=== PATIENT | female | born 1980 | race Caucasian/White ===

== ENCOUNTER → 2016-11-02 17:03 | Outpatient (CLI) | payer BC | END | disposition home or self-care (01) | LOC: D.MAMMO 11:30 | DX: Z12.31 Encounter for screening mammogram for malignant neoplasm of breast (principal) ==

== ENCOUNTER 2019-01-02 08:45 | Day surgery (SDC) | payer MEDICARE ==
[2019-01-01 13:47] LABS: HEMATOCRIT 42.6 % (36.0-48.0); HEMOGLOBIN 14.8 g/dL (12-16); MCH 32.7 pg (26.0-34.0); MCHC 34.7 g/dL (31.0-37.0); MCV 94.2 fL (80.0-100.0); MEAN PLATELET VOLUME 9.3 fL (7.4-10.4); RBC 4.52 10x6/uL (4.00-5.40); WBC 15.7 10x3/uL (4.8-10.8)
[~2019-01-02] VITALS: Ht 154.9 cm; Wt 83.5 kg
[~2019-01-02 08:45] MED LIST: ACETAMINOPHEN500 M1 PO; ALDACTONE25 MG PO; BUSPAR 15 MG TA15 MG PO; CELEXA40 MG PO; KRILL OIL 1,001 EAC1 PO; LEVOTHYROXINE75 MCG PO; LITHIUM CARB CAP 300 PO; MELATONIN5 MG PO; MULTI-DAY VITAM1 TAB PO; PRAVACHOL80 MG PO; PROPRANOLOL HCL20 MG PO; TOPAMAX100 MG PO; VITAMIN D250000 UNIT PO; ZYRTEC10 MG PO
--- NOTE | 2019-01-02 08:59 | NUR ---
0610 BEHAVIORAL HEALTH CONSULT REQUEST CALLED TO ANALY MARTINEZ, TRIM OPERATOR.
[2019-01-02 09:17] VITALS: BP 113/61; Ht 154.9 cm; Wt 83.5 kg
--- NOTE | 2019-01-02 09:18 | NUR ---
PT A LOW RISK ACCORDING TO ASSESSMENT. REVIEWED WITH NURSE. RESOURCES GIVEN AND REVIEWED WITH PT. PT VERBALIZED UNDERSTANDING. PT GATHERED A HANDFUL OF PILLS BUT STOPPED WHEN HER KIDS WALKED IN. THE SECOND ATTEMPT WAS ALSO 5 YEARS AGO AND SHE STOPPED HERSELF. PT WAS ADMITTED TO [facility] AND DIAGNOSED WITH BIPOLAR. SHE TAKES LITHIUM TO CONTROL THIS.
[2019-01-02 09:42] LABS: BASOPHILS 0.5 % (0-2); EOSINOPHILS 3.7 % (0-7); HEMATOCRIT 40.9 % (36.0-48.0); HEMOGLOBIN 14.2 g/dL (12-16); IMMATURE GRANULOCYTES 0.2 % (0-5); LYMPHOCYTES 18.6 % (15-50); MCH 32.4 pg (26.0-34.0); MCHC 34.7 g/dL (31.0-37.0); MCV 93.4 fL (80.0-100.0); MEAN PLATELET VOLUME 9.6 fL (7.4-10.4); MONOCYTES 6.1 % (2-11); NEUTROPHILS 70.9 % (40-80); PLATELET COUNT 307 10x3/uL (130-400); RBC 4.38 10x6/uL (4.00-5.40)
[2019-01-02 09:45] LABS: WBC 10.4 10x3/uL (4.8-10.8)
[2019-01-02 09:51] LABS: APPEARANCE CLEAR (CLEAR); BILIRUBIN NEGATIVE (NEGATIVE); COLOR YELLOW (YELLOW); GLUCOSE NEGATIVE (NEGATIVE); KETONE NEGATIVE (NEGATIVE); NITRITE NEGATIVE (NEGATIVE); PROTEIN 1+ mg/dL (NEGATIVE); SPECIFIC GRAVITY 1.005 (1.005-1.020); UROBILINOGEN NORMAL (NORMAL)
[2019-01-02 09:55] LABS: BACTERIA FEW /hpf (NEGATIVE); EPITHELIAL CELLS 0-5 /hpf (0-5); RED CELLS - URINE RARE /hpf (0-5); WHITE CELLS - URINE OCC /hpf (NEGATIVE)
[2019-01-02 10:00] LABS: HCG URINE NEGATIVE (NEGATIVE)
[2019-01-02] MEDS ORDERED: HYDROCODON-ACE1 EA10 PO (14:20)
--- NOTE | 2019-01-02 15:02 | NUR ---
1500 MEETS ANESTHESIA DISCHARGE CRITERIA
--- NOTE | 2019-01-03 14:29 | OP ---
PATIENT NAME: ROSALIE URIAS MEDICAL RECORD: [id number] :82 LOCATION:D.OPS ADMISSION DATE: SURGEON: GRACE VENCES MD DATE OF OPERATION: 01/02/2019 PREOPERATIVE DIAGNOSIS: Impingement syndrome of the right shoulder. POSTOPERATIVE DIAGNOSES: 1. Impingement syndrome of the right shoulder. 2. Severe biceps tendinitis. PROCEDURES: 1. Arthroscopic biceps tenotomy. 2. Arthroscopic subacromial decompression with acromioplasty and bursectomy. SURGEON: Grace Vences MD ANESTHESIA: General. INTRAOPERATIVE COMPLICATIONS: None. SUMMARY OF PATHOLOGIC FINDINGS: The patient did have a type 3 acromion, downward sloping acromion with excoriation of the coracoacromial ligament. Unfortunately, she had severe biceps tendinitis and tendinosis. The decision was made to proceed with a biceps tenotomy as well as subacromial decompression. OPERATIVE SUMMARY IN DETAIL: After obtaining the appropriate preoperative orthopedic surgery consent as well as anesthetic consultation, evaluation and clearance, the patient was brought to the operating room and placed on the operating table in supine position. After adequate general laryngeal mask airway was administered, the patient was placed in left lateral decubitus position. All pressure points were well-padded to include down leg peroneal pad as well as the axillary roll. The patient was held firmly to the operating table using the vacuum pack suction system. The right upper extremity was prepped and draped in routine sterile fashion. The arm was held in the Arthrex traction boom in 30 degrees of forward flexion, 30 degrees of abduction, 10 pounds of traction laterally. Arthroscopy was established in the glenohumeral joint from the posterior portal. Anterior portal was established from the anterior safe interval. Diagnostic arthroscopy did reveal the patient to have no rotator cuff tearing. It was in actual very good shape; however, the biceps tendon was in very poor condition. At this point, the [place] tissue ablation system was utilized to perform biceps tenotomy. Attention was then turned to the subacromial space. While in the subacromial space, accessory lateral portal was created through which the [place] surface tissue ablation system was utilized to denude the undersurface of all soft tissue elements and release the coracoacromial ligament. A 5.0 barrel bur was then used to perform acromioplasty at the level of acromioclavicular joint. The acromioclavicular joint maintained its intra-articular meniscus and there was no sign of severe chondromalacia. The 5.0 resector was then utilized to clean all bursa, which there was a substantial amount both superiorly, anteriorly, laterally, and posteriorly. The shoulder was gently articulated and not found to have any articular surface tearing. Having completed this, arthroscopy portals were closed in routine interrupted fashion using 4-0 Prolene. Sterile dressings were applied. The patient was awakened and taken to recovery room in stable condition. All final needle and sponge counts were correct. OPERATIVE REPORT [id number] URIASROSALIE YENI TRANSINT:[id number] Voice Confirmation ID: [id number] DOCUMENT ID: [id number] RU HDZ, GRACE ARRINGTON at 1429 CC: [id number] DICTATION DATE: 01/03/19 1150 TO[employer]ER ELEMENT REPAIRER: 01/03/[address] [facility] 01/02/19 [facility] [address] [place] [address]
== END 2019-01-02 16:15 | disposition home or self-care (01) ==
LOC: D.OPS 08:45 → D.PAN 10:45 → D.OPS 10:45 → D.PAN 11:15 → D.OPS 14:50 → D.PAN 16:15
PROVIDERS: Anesthesiology; ATTEND Orthopaedic Surgery
DX: M25.811 Other specified joint disorders, right shoulder (principal)